=== PATIENT | female | born 1985 | race Caucasian/White ===

== ENCOUNTER 2020-08-28 04:21 | Inpatient (IN) | payer BC ==
--- NOTE | 2020-08-27 11:15 | PREOPHP ---
Date of Admission: 08/28/2020 History Of Present Illness: This is a 35-year-old female, 3, para 2, for repeat sec tion and tubal sterilization. Full preoperative counseling concerning procedure and possible complic ations including infection, blood loss, anesthetic complications, injury to bladder, bowel, ureter; p ostoperative complications; clots in legs, and pneumonia. The patient knows fully well this does not constitute all the possible problems that could occur during or following surgery. Tubal ligation h as been approved. Tubal failure rates discussed including tubal ectopic pregnancies. Family History: Really noncontributory other than the father had diabetes. Past Medical History: The patient herself has had diabetes during the and has been seen in consultation with Dr. [facility] who has recommended delivery at this point . Past Surgical History: The patient has had some sort of back surgery when she was younger. She has had 2 previous sections. Physical Examination: HEENT: Clear. Pupils equal, round, reactive to light and accommodation. Conjunctivae well perfused . No oral, lingual, or buccal lesions. Chest: Clear. Heart: Without murmurs, thrills, heaves, or rubs. Breasts: Without masses on previous visits. The baby is vertex and reasonable size and probably 8 p ounds range plus or minus. Cervix is closed. The baby is vertex, but still floating. Extremities: Clear without edema, cyanosis, or clubbing. It has been noted on previous surgery the patient has significant scar tissue. She knows that this i ncreases the risk for injury to the bladder and it might make it more difficult to perform a tubal. We have discussed this thoroughly. We will see what surgery shows. KOLTON/DESTINI Voice ID: [id number]
[2020-08-27 12:52] LABS: Absolute Lymphocytes (CBC) 2.4 K/uL (0.7-4.9); Basophils % 0.3 % (0-1.3); Hematocrit 33.2 % (36.0-45.0); Lymphocytes % 20.7 % (15.3-44.8); MPV 8.1 fL (7.6-11.3); RBC Red Blood Cell Count 3.84 M/uL (3.86-4.86)
[2020-08-27 12:59] LABS: Urine Appearance CLOUDY; Urine Bilirubin NEGATIVE (NEG); Urine Blood NEGATIVE (NEG); Urine Color YELLOW; Urine Glucose NEGATIVE (NEG); Urine Protein NEGATIVE (NEG); Urine Specific Gravity 1.015 (1.005-1.030); Urine Urobilinogen 0.2 mg/dL (0.2-1.0)
[2020-08-27 13:03] LABS: Protime INR 0.94
[2020-08-27 14:03] LABS: Urine Microscopic Reflex ORDER UMIC
[2020-08-27 14:09] LABS: Urine Amorphous Sediment 1+ /HPF (NONE SEEN); Urine Bacteria >50 /HPF (<20); Urine RBC NONE SEEN /HPF (NONE SEEN)
[2020-08-28 00:22] LABS: RPR (Rapid Plasma Reagin) NON-REACT (NON-REACT)
[~2020-08-28 04:21] MED LIST: CEFAZOLIN 2 GM in NA CHLORIDE 0.9% 100 ML IVPB SCH
--- OUTSIDE RECORDS SUMMARY | 2020-08-28 04:24 | XMS REPORT | Continuity of Care Document ---
:1985 Author Organization [facility] t Address [address] [place] [address] Care Team Providers Name Role Phone Denise DIAZ, H Attending Clinician Only, Test Attending Clinician Unavailable Doctor Unassigned, Name Attending Clinician Unavailable Alessandro Wesley MD Attending Clinician Problems This patient has no known problems. Allergies, Adverse Reactions, Alerts This patient has no known allergies or adverse reactions. Medications This patient has no known medications. Procedures This patient has no known procedures. Encounters Start End Encounter Admission Attending Care Care Encounter Source Date/Time Date/Time Type Type Clinicians Facility Department ID 2019-12-22 2019-12-22 Telephone SAMY Walker [id number] 00:00:00 00:00:00 Elvin CASH [id number] [id number] 2019-12-21 2019-12-21 Laboratory Only, [facility] [id number] 09:35:29 09:50:29 Only Test Manuel [id number]7.2.686 [place] [id number] 2019-12-21 2019-12-21 Orders Doctor PABLO [id number] 00:00:00 00:00:00 Only UnassignedSHAILESH [id number] [place] [address]686 [id number] 2019-12-09 2019-12-09 Orders Doctor SAMY [id number] 00:00:00 00:00:00 Only Unassigned, SHAILESH [id number] [place] [facility] [id number] [id number] 2019-11-23 2019-11-23 Telephone [facility] [id number] 00:00:00 00:00:00 Juvencio Jackson [id number] [place] [id number] Professio [id number] [address] 2019-10-03 2019-10-03 [facility] [id number] 11:23:57 11:38:57 ne Visit Juvencio Jackson [id number] [place] 4.2.7.2.686 Professio [phone] [address] 2019-10-03 2019-10-03 Refill [facility] [id number] 00:00:00 00:00:00 [facility] [id number] [place] [id number] Professio [phone] [place] [address] [address] One Results This patient has no known results.
[2020-08-28] MEDS ORDERED: Ringers Lactate 1,000 ML IV PRN (04:26)
[2020-08-28] MEDS ORDERED: NA CIT/CITRIC AC 30 ML ORAL UDC PO ONE (04:33)
[2020-08-28] MEDS ORDERED: FAMOTIDINE 20 MG/2 ML VIAL IV ONE (04:34)
[2020-08-28] MEDS ORDERED: METOCLOPRAMIDE 10 MG/2mL INJ IV ONE (05:00)
[2020-08-28] MEDS ORDERED: Ringers Lactate 1,000 ML IV SCH (05:00)
[2020-08-28 05:02] VITALS: BMI 34.2
[2020-08-28] MEDS ORDERED: CEFAZOLIN/SWI 2gm 2 GM/20 ML SYR ONE ×2 (06:02→16:29)
[2020-08-28] MEDS ORDERED: METHYLERGONOVINE 0.2MG/ML AMP IM ONE (06:02)
[2020-08-28] MEDS ORDERED: CARBOPROST TROME 250 MCG/ML IM ONE (07:09)
[2020-08-28] MEDS ORDERED: MORPHINE SULFATE/PF 1 MG/ML (10 ML AMP) ONE (07:16)
[2020-08-28] MEDS ORDERED: LIDOCAINE 1% MPF 5 ML VIAL ONE ×2 (07:16→07:53)
[2020-08-28] MEDS ORDERED: OXYTOCIN 10 UNIT/ML ML IV ONE (07:16)
[2020-08-28] MEDS ORDERED: BUPIVACAINE 0.75% (PF) 2 ML SP ONE (07:26)
[2020-08-28] MEDS ORDERED: propofoL 200 MG/20 ML VIAL IV ONE (07:56)
[2020-08-28] MEDS ORDERED: ROCURONIUM 50 MG/5 ML VIAL IV ONE (07:57)
[2020-08-28] MEDS ORDERED: FENTANYL CITR 250 MCG/5 ML ONE (07:57)
[2020-08-28] MEDS ORDERED: SUCCINYLCHOLINE 20 MG/ML (10 ML) IV ONE (08:34)
[2020-08-28] MEDS ORDERED: ONDANSETRON 4 MG (ODT) TAB PO PRN (08:42)
[2020-08-28] MEDS ORDERED: KETOROLAC 30 MG/ML INJ IV PRN (08:42)
[2020-08-28] MEDS ORDERED: DIPHENHYDRAMINE 25 MG TAB/CAP PO PRN (08:42)
[2020-08-28] MEDS ORDERED: CEFAZOLIN 1GM (PREMIX IV) 1 GM/50 ML BAG IV ONE (08:42)
[2020-08-28] MEDS ORDERED: BISACODYL 10 MG RECTAL SUPP PR PRN (08:42)
[2020-08-28] MEDS ORDERED: Oxycodone HCl/Acetaminophen 1 TAB TAB PO PRN (08:42)
[2020-08-28] MEDS ORDERED: METHYLERGONOVINE 0.2 MG TAB PO PRN (08:42)
[2020-08-28] MEDS ORDERED: ACETAMINOPHEN 500 MG TAB PO PRN ×2 (08:42)
[2020-08-28] MEDS ORDERED: ONDANSETRON 4 MG/2 ML VIAL IV PRN (08:42)
[2020-08-28] MEDS ORDERED: D50W 25 GM/50 ML SYRINGE IV PRN (08:46)
[2020-08-28] MEDS ORDERED: GLUCAGON 1 MG/VIAL IM PRN (08:46)
[2020-08-28] MEDS ORDERED: OXYTOCIN/LR 20 UNIT/1,000 ML BAG IV SCH (09:00)
[2020-08-28] MEDS ORDERED: D5LR 1,000 ML with OXYTOCIN 20 UNIT IV SCH ×2 (09:00)
[2020-08-28] MEDS ORDERED: NALOXONE 0.4 MG/ML VIAL IV PRN (09:02)
[2020-08-28] MEDS ORDERED: MORPHINE/NS PCA 50 MG/50 ML PCA.SYRING IV PRN (09:02)
[2020-08-28] MEDS ORDERED: NA CHLORIDE 0.9% 0 ML ONE (09:51)
--- NOTE | 2020-08-28 10:04 | OP ---
Surgeon: Edwin Grace MD Indications And Procedure In Detail: Che Solis is a 35-year-old 3, para 2, insulin-depen dent diabetic, third section, desires for tubal sterilization. Significant anterior scarrin g noted with last delivery. Seen in consultation with Dr. Gamino, [facility] at [place], oscar matson recommended delivery at this point, 38 weeks [address] Gray and Dr. Da Silva to place spinal block were unsuccessful. Therefore, it was decided to proceed with general anesthetic. The patient was prepped and draped and then crash induction was performed with endotracheal intubati on. A Pfannenstiel incision was created. The incision was carried to the fascia. The fascia was th en incised and incision was carried transversely bilaterally. Anterior and posterior fascial planes were developed with both blunt and sharp dissection. The patient was noted to have severe anterior s carring. This was carefully dissected away and Bovie cautery was used until a space could be seen wh ere the lower uterine segment was visible. Bladder flap was developed. Low transverse uterine incis ion created. 6 pounds 11 ounces male was delivered through the incision without difficulties, Apgars 9 and 9. Cord blood specimen obtained. Placenta removed manually. Uterus cleared of clot a nd blood and exteriorized. Uterus mildly hypotonic. 0.2 mg of Methergine as well as IV drip Pitocin and massage. Estimated blood loss during the procedure 1000 cc. Cervical os dilated. Uterus close d with a running locked stitch of 1 chromic. Raw areas on the anterior cervix were fulgurated. Bila teral tubal ligation was then performed, each tube being kinked in the midportion, triply tied with 2 -0 plain. Segment of tube was removed. The tubal lumen which was exposed was fulgurated. Gutters c lear of clot and blood. Uterus replaced in the peritoneal cavity. Inspection showed 1 small bleedin g area above the incision, fulguration at that point. Thorough inspection, a single stitch was place d in the lower portion below the fascia avoiding the bladder for complete hemostasis. The fascia was then closed with 1 Vicryl running from either angle to the midline. Subcutaneous tissue closed with 2-0 plain and then mustapha for the skin. The patient had been given 2 g of Ancef for prophylaxis. Tolerated all procedures well. Transferred back to her room in good condition. Admission glucose wa s 100. We will check the patient's glucose during the day and put her on sliding scale. Final Diagnoses: Intrauterine gestation 38 weeks 2 days, insulin-dependent diabetic, repeat section, tubal sterilization, severe anterior scarring, mild hypotonus. KOLTON/DESTINI Voice ID: [id number] Report ID: [id number]
[2020-08-28] MEDS: INSULIN -REGULAR HUMAN 50 UNIT/0.5 ML ML SQ SCH ×3 (11:30→21:00)
[2020-08-28] MEDS ORDERED: CEFAZOLIN 2 GM in NA CHLORIDE 0.9% 100 ML IVPB ONE (16:00)
[2020-08-28] MEDS ORDERED: D50W 25 GM/50 ML VIAL IV PRN (17:00)
[2020-08-28] MEDS ORDERED: Rho(D) IG (HUMAN) 300 MCG SYR IM ONE (17:00)
[2020-08-29] MEDS: INSULIN -REGULAR HUMAN 50 UNIT/0.5 ML ML SQ SCH ×4 (07:30→21:00)
--- NOTE | 2020-08-29 07:40 | PN ---
Postoperatively, the patient has done well. Quite alert this morning, not any significant pain. Out put is good. Vital signs are stable. H and H with expected change. We will discontinue Fajardo and I V today. Begin ambulation and p.o. intake. If she continues to progress well, she will be dismissed tomorrow. Full postop talk. KOLTON/DESTINI Voice ID: [id number] Report ID: [id number]
[2020-08-29] MEDS ORDERED: MAGNESIUM HYDROXIDE 8% 30 ML PO PRN (08:42)
[2020-08-29] MEDS: Oxycodone HCl/Acetaminophen 1 TAB TAB PO PRN (09:03)
[2020-08-29] MEDS: IBUPROFEN 200 MG TAB PO PRN (13:00)
[2020-08-30] MEDS: IBUPROFEN 200 MG TAB PO PRN ×2 (01:05→11:45)
[2020-08-30] MEDS: Oxycodone HCl/Acetaminophen 1 TAB TAB PO PRN (05:40)
[2020-08-30 05:51] VITALS: BP 120/72; TEMP 98.6
[2020-08-30] MEDS: INSULIN -REGULAR HUMAN 50 UNIT/0.5 ML ML SQ SCH ×2 (07:36→11:30)
--- NOTE | 2020-08-30 09:06 | DS ---
Chief Complaint: 35-year-old 3, para 2, previous C-sections, for a repeat section, insulin-dependent diabetic, seen in consultation with Dr. Gamino, [facility], who r ecommended delivery between 38 and 39 weeks. The patient was noted to have significant anterior scar ring on the last surgery. Spinal block anesthesia was attempted but was not possible as the patient has Walker rods. After prepping and draping, crash induction was performed. The patient was del ivered of a 6 pounds 11 ounces male , Apgars 9 and 9. Significant anterior scarring again note d on the uterus. Estimated blood loss 1000 cc, uterus mildly hypotonic, 0.2 mg of Methergine as well as IV drip Pitocin and massage. At her request and because of the significant scarring and diabetes , tubal ligation was approved and was performed. Bilateral tubal ligation, modified Wendel. Postop eratively, the patient has done quite well. She is ambulating, voiding. Lochia is normal. No probl ems noted. She will be dismissed later today to report back to my office in 1 week for followup, to report any temperature elevation of 100 degrees or greater, severe pain, heavy bleeding, or any other type of abnormalities. Dismissed with tramadol for analgesia. Offered Tdap and flu shots. No prob lems in the lower lumbar area where spinal was attempted other than mild soreness. Final Diagnoses: Intrauterine gestation, 38 weeks 2 days, insulin-dependent diabetes, repeat cesarea n section, tubal sterilization, general anesthesia, Tdap and flu shots offered. Mild uterine hypoton us. NBC/MODL Voice ID: [id number] Report ID: [id number]
[2020-08-31 16:15] LABS: HBsAG Nonreactive (Nonreactive)
== END 2020-08-30 13:10 | disposition home or self-care (01) | DRG 785 ==
LOC: 2ND-WC 04:21
PROVIDERS: ADMIT Specialist; ATTEND Specialist
PROC: 0UL70ZZ Occlusion of Bilateral Fallopian Tubes, Open Approach (ICD-10-PCS; 2020-08-28)
PROC: 0BH17EZ Insertion of Endotracheal Airway into Trachea, Via Natural or Artificial Opening (ICD-10-PCS; 2020-08-28)
PROC: 3E0234Z Introduction of Serum, Toxoid and Vaccine into Muscle, Percutaneous Approach (ICD-10-PCS; 2020-08-28)
PROC: 10907ZC Drainage of Amniotic Fluid, Therapeutic from Products of Conception, Via Natural or Artificial Opening (ICD-10-PCS; principal; 2020-08-28 07:30)
PROC: 10D00Z1 Extraction of Products of Conception, Low, Open Approach (ICD-10-PCS; 2020-08-28 07:30)
DX: O24.32 Unspecified pre-existing diabetes mellitus in childbirth (principal); O34.211 Maternal care for low transverse scar from previous cesarean delivery; E11.9 Type 2 diabetes mellitus without complications; O62.2 Other uterine inertia; Z3A.38 38 weeks gestation of pregnancy; Z37.0 Single live birth; Z79.4 Long term (current) use of insulin
CPT/HCPCS: 36415; 81003; 81015; 82947; 85014; 85025; 85461; 85610; 85730; 86592; 86850; 86870; 86900; 86901; 87086; 87088; 87340; 88302; 88305; 88307; J0330; J0690; J1610; J2210; J2270; J2405; J2590; J2704; J2765; J2790; J3010; J7040; J7120; J7121; U0003